=== PATIENT | male | born 1950 | race Hispanic/Latino ===

== ENCOUNTER 2018-01-23 15:54 | Observation (INO) | payer MEDICARE ==
[~2018-01-23] VITALS: Ht 175.3 cm; Wt 115.7 kg
[~2018-01-23 15:54] MED LIST: ASPIRIN81 MG PO; ATORVASTATIN CA20 MG PO; METFORMIN HCL500 MG PO; METOPROLOL TART50 MG PO; NITROGLYCERIN0.4 MG SL; PLAVIX75 MG PO
--- OUTSIDE RECORDS SUMMARY | 2018-01-23 15:57 | XMS REPORT | Clinical Summary ---
Author Author LASHAY [facility] Address Unknown Phone Unavailable Care Team Providers Care Segment Block Layer Name Role Phone PCP Unavailable Allergies No Known Allergies Current Medications Prescription Sig. Disp. Refills Start End Date Status Date atorvastatin (LIPITOR) 20 Take 20 mg by mouth Active MG tablet daily. clopidogrel (PLAVIX) 75 Take 75 mg by mouth Active mg tablet daily. metFORMIN (GLUCOPHAGE) Take 500 mg by mouth 2 Active 500 MG tablet (two) times daily with breakfast and dinner. artificial Place 1 drop into both Active tears,hypromellose, 0.4 % eyes 3 (three) times Drop daily as needed. nitroglycerin (NITROSTAT) Place 0.3 mg under the Active 0.3 MG SL tablet tongue every 5 (five) minutes as needed for Chest pain Put 1 pill under tongue every 5min as needed for chest pain.No more than 3 doses in 15min.Call 911 if pain is unrelieved 5min after 1st dose . metoprolol (TOPROL-XL) 50 Take 50 mg by mouth Active MG 24 hr tablet daily. Active Problems Not on file Social History Tobacco Use Types Packs/Day Years Used Date Former Smoker Quit: 12/01/1999 Alcohol Use Drinks/Week oz/Week Comments Yes 3 Cans of 1.8 beer Sex Assigned at Date Recorded Not on file Last Filed Vital Signs Not on file Plan of Treatment Not on file Implants Implanted Type Area Coal Passer Device Expiration Model / Identifier Date Serial / Lot Tissue Memb Amniograft 2.5x2cm IMPLANTS Bilateral: [employer] 03/2017 AG-2520 / Ag-2520 - [id number] Implanted: Qty: 1 on 01/10/2016 by -[id number] / Ivelisse Crowley MD [id number] Tissue Memb Amniograft 2.5x2cm Ophthalmol Left: Eye BIO-TISSUE 2017 AG-2520 / Ag-2520 - [id number] Implanted: Qty: 1 on 11/20/2016 by -[id number] / Ivelisse Crowley MD Results Not on fileafter 01/22/2017
[2018-01-23 18:54] LABS: BASOPHILS % 0.5 % (0.0-1.0); EOSINOPHILS # (AUTO) 0.2 (0.0-0.4); EOSINOPHILS % 2.3 % (0.0-6.0); HEMATOCRIT 41.3 % (38.2-49.6); HEMOGLOBIN 14.1 g/dL (14.0-18.0); LYMPHOCYTES # (AUTO) 2.2 (1.0-3.2); MEAN CORPUSCULAR HEMOGLOBIN 29.2 pg (28-32); MEAN CORPUSCULAR HGB CONC 34.1 g/dL (31-35); MEAN CORPUSCULAR VOLUME 85.5 fL (81-99); MONOCYTES # (AUTO) 0.7 (0.2-0.8); MONOCYTES % 8.3 % (4.4-11.3); NEUTROPHILS # (AUTO) 4.9 (2.1-6.9); NEUTROPHILS % 60.5 % (38.7-80.0); PLATELET COUNT 188 x10e3/uL (140-360); RED BLOOD COUNT 4.83 x10e6/uL (4.3-5.7); RED CELL DISTRIBUTION WIDTH 13.8 % (11.7-14.4)
[2018-01-23 19:05] LABS: ALANINE AMINOTRANSFERASE 26 IU/L (0-55); ALBUMIN/GLOBULIN RATIO 1.1 (0.8-2.0); ALKALINE PHOSPHATASE 82 IU/L (40-150); ANION GAP 14.6 mmol/L (8-16); BLOOD UREA NITROGEN 10 mg/dL (7-26); BUN/CREATININE RATIO 10 (6-25); CALCIUM 8.9 mg/dL (8.4-10.2); CARBON DIOXIDE 25 mmol/L (22-29); CHLORIDE 101 mmol/L (98-107); CHOL/HDL RATIO 3.5 (3.9-4.7); CHOLESTEROL 158 MD/DL (0-199); CREATININE, SERUM 0.97 mg/dL (0.72-1.25); EST GLOMERULAR FILTRATION RATE > 60 ML/MIN (60-); GLUCOSE 165 mg/dL (74-118); HDL CHOLESTEROL 45 MG/DL (40-60); LDL CHOLESTEROL 40 MG/DL (60-130); POTASSIUM 3.6 mmol/L (3.5-5.1); SODIUM 137 mmol/L (136-145); TRIGLYCERIDES 363 MG/DL (0-149)
--- NOTE | 2018-01-23 19:39 | Diagnostic Imaging Report ---
EXAMINATION: CHEST 2 VIEWS INDICATION: \S\Chest Pain \S\[id number] \S\185 COMPARISON: None FINDINGS: PA and lateral views TUBES and LINES: None. LUNGS: Lungs are well inflated. Lungs are clear. There is no evidence of pneumonia or pulmonary edema. PLEURA: No pleural effusion or pneumothorax. HEART AND MEDIASTINUM: The cardiomediastinal silhouette is unremarkable. BONES AND SOFT TISSUES: No acute osseous lesion. Degenerative changes of the spine. Mild compression deformity of the lower thoracic spine vertebral body of indeterminate age. Soft tissues are unremarkable. UPPER ABDOMEN: No free air under the diaphragm. IMPRESSION: No acute thoracic abnormality. Signed by: Dr. Desmond Duran MD on 01/23/2018 7:36 PM
[2018-01-23] MEDS ORDERED: ASPIRIN 81 MG CHEW TAB ONE (21:05)
[2018-01-23] MEDS ORDERED: ASPIRIN 81 MG CHEW TAB PO ONE (21:15)
[2018-01-23 21:26] LABS: INR 0.98; PROTHROMBIN TIME 12.2 seconds (11.9-14.5)
[2018-01-23 21:27] LABS: PARTIAL THROMBOPLASTIN TIME 30.8 seconds (23.8-35.5)
[2018-01-23 21:44] LABS: CREATINE KINASE MB 2.3 ng/mL (0-5.0)
[2018-01-23] MEDS ORDERED: NITROGLYCERIN 0.4 MG SUBL SL PRN (22:00)
[2018-01-23] MEDS ORDERED: MORPHINE SULFATE 2 MG/ML SYR IV PRN (22:00)
[2018-01-23] MEDS ORDERED: ONDANSETRON HCL INJ 2 MG/ML VIAL IV PRN (22:00)
--- OUTSIDE RECORDS SUMMARY | 2018-01-23 22:57 | XMS REPORT | Clinical Summary ---
Author Author LASHAY [facility] Address Unknown Phone Unavailable Care Team Providers Care Wind Turbine Erector Name Role Phone PCP Unavailable Allergies No [...] Not on file Implants Implanted Type Area Seat Installer Device Expiration Model / Identifier Date Serial / Lot Tissue Memb Amniograft 2.5x2cm IMPLANTS Bilateral: [employer] 03/2017 AG-2520 / Ag-2520 - [id number] Implanted: Qty: 1 on 01/10/2016 by -[id number] / Ivelisse Crowley MD [id number] Tissue Memb Amniograft 2.5x2cm Ophthalmol Left: Eye BIO-TISSUE 2017 AG-2520 / Ag-2520 - [id number] Implanted: Qty: 1 on 11/20/2016 by -[id number] / Ivelisse Crowley MD Results Not on fileafter 01/22/2017
--- OUTSIDE RECORDS SUMMARY | 2018-01-23 22:57 | XMS REPORT ---
[facility] Address Unknown Phone Unavailable Care Team Providers Care Quick Print Operator Name Role Phone MARCO RAMÍREZ Unavailable Unavailable Problems This patient has no known problems. Allergies, Adverse Reactions, Alerts This patient has no known allergies or adverse reactions. Medications This patient has no known medications. Results Test Description Test Time Test Comments Text Results Atomic Results Result Comments CHEST 2 VIEWS [place] [address] Patient Name: NURA ELLIS MR #: [id number] : 1950 Age/Sex: 67/M Req #: [id number] [facility] Physician: Ordered by: MARCO RAMÍREZ MD Report #: [id number] Location: ER Room/Bed: Procedure: [id number] DX/CHEST 2 VIEWS Exam Date: 01/23/18 Exam Time: 1854 REPORT STATUS: Signed EXAMINATION: CHEST 2 VIEWS INDICATION: COMPARISON: None FINDINGS: PA and lateral views TUBES and LINES: None. LUNGS: Lungs are well inflated. Lungs are clear. There is no evidence of pneumonia or pulmonary edema. PLEURA: No pleural effusion or pneumothorax. HEART AND MEDIASTINUM: The cardiomediastinal silhouette is unremarkable. BONES AND SOFT TISSUES: No acute osseous lesion. Degenerative changes of the spine. Mild compression deformity of the lower thoracic spine vertebral body of indeterminate age. Soft tissues are unremarkable. UPPER ABDOMEN: No free air under the diaphragm. IMPRESSION: No acute thoracic abnormality. Signed by: Dr. Desmond Duran MD on 01/23/2018 7:36 PM Dictated By: DESMOND DURAN MD 35 Transcribed By: ALPHONSO on 01/23/181935 COPY TO: MARCO RAMÍREZ MD
[2018-01-23] MEDS: ENOXAPARIN SODIUM INJ 100 MG/ML SYR SC SCH (23:15)
[2018-01-23] MEDS: FAMOTIDINE 20 MG/2 ML VIAL IV SCH (23:15)
[2018-01-23] MEDS ORDERED: OMEPRAZOLE40 MG PO (23:46)
[2018-01-23] MEDS ORDERED: GLIMEPIRIDE2 MG PO (23:46)
[2018-01-24 02:25] LABS: CREATINE KINASE MB 1.8 ng/mL (0-5.0)
[2018-01-24 05:18] LABS: BASOPHILS # (AUTO) 0.1 (0.0-0.1); BASOPHILS % 0.7 % (0.0-1.0); EOSINOPHILS # (AUTO) 0.3 (0.0-0.4); HEMATOCRIT 39.2 % (38.2-49.6); HEMOGLOBIN 13.1 g/dL (14.0-18.0); LYMPHOCYTES # (AUTO) 2.5 (1.0-3.2); LYMPHOCYTES % 36.6 % (18.0-39.1); MEAN CORPUSCULAR HEMOGLOBIN 28.7 pg (28-32); MEAN CORPUSCULAR HGB CONC 33.4 g/dL (31-35); MEAN CORPUSCULAR VOLUME 85.8 fL (81-99); MONOCYTES # (AUTO) 0.6 (0.2-0.8); MONOCYTES % 9.4 % (4.4-11.3); NEUTROPHILS # (AUTO) 3.3 (2.1-6.9); PLATELET COUNT 150 x10e3/uL (140-360); RED BLOOD COUNT 4.57 x10e6/uL (4.3-5.7)
[2018-01-24 05:37] LABS: ALANINE AMINOTRANSFERASE 22 IU/L (0-55); ALBUMIN 3.5 g/dL (3.5-5.0); ALBUMIN/GLOBULIN RATIO 1.1 (0.8-2.0); ALKALINE PHOSPHATASE 62 IU/L (40-150); ANION GAP 13.6 mmol/L (8-16); BLOOD UREA NITROGEN 11 mg/dL (7-26); BUN/CREATININE RATIO 14 (6-25); CALCIUM 8.5 mg/dL (8.4-10.2); CARBON DIOXIDE 26 mmol/L (22-29); CHLORIDE 102 mmol/L (98-107); CHOL/HDL RATIO 3.3 (3.9-4.7); CHOLESTEROL 138 MD/DL (0-199); CREATININE, SERUM 0.76 mg/dL (0.72-1.25); EST GLOMERULAR FILTRATION RATE > 60 ML/MIN (60-); GLUCOSE 130 mg/dL (74-118); HDL CHOLESTEROL 42 MG/DL (40-60); LDL CHOLESTEROL 81 MG/DL (60-130); POTASSIUM 3.6 mmol/L (3.5-5.1); SODIUM 138 mmol/L (136-145); TRIGLYCERIDES 77 MG/DL (0-149)
[2018-01-24] MEDS ORDERED: ASPIRIN 325 MG TAB EC PO SCH (09:00)
[2018-01-24] MEDS: ENOXAPARIN SODIUM INJ 100 MG/ML SYR SC SCH (09:29)
[2018-01-24] MEDS: FAMOTIDINE 20 MG/2 ML VIAL IV SCH ×2 (09:30→20:41)
[2018-01-24 09:44] LABS: CREATINE KINASE 163 IU/L (30-200)
[2018-01-24] MEDS ORDERED: ALPRAZOLAM 0.5 MG TAB PO PRN (10:30)
[2018-01-24] MEDS ORDERED: FAMOTIDINE 20 MG TAB PO PRN (10:30)
[2018-01-24] MEDS ORDERED: HEPARIN SOD/SOD CHLORIDE 2,000 ML PRN (13:34)
[2018-01-24] MEDS ORDERED: IOPAMIDOL 370 MG/ML 200 ML INFUS..BTL INJ PRN (13:34)
[2018-01-24] MEDS ORDERED: LIDOCAINE HCL 2% LOCAL 20 ML VIAL PRN (13:34)
[2018-01-24] MEDS ORDERED: SODIUM CHLORIDE 0.9% 1000ML 1,000 ML PRN (13:35)
--- OUTSIDE RECORDS SUMMARY | 2018-01-24 14:05 | XMS REPORT | Clinical Summary ---
Author Author LASHAY [facility] Address Unknown Phone Unavailable Care Team Providers Care Administrative Services Officer Name Role Phone PCP Unavailable Allergies No [...] Not on file Implants Implanted Type Area Model Maker Firearms Device Expiration Model / Identifier Date Serial / Lot Tissue Memb Amniograft 2.5x2cm IMPLANTS Bilateral: [employer] 03/2017 AG-2520 / Ag-2520 - [id number] Implanted: Qty: 1 on 01/10/2016 by -[id number] / Ivelisse Crowley MD [id number] Tissue Memb Amniograft 2.5x2cm Ophthalmol Left: Eye BIO-TISSUE 2017 AG-2520 / Ag-2520 - [id number] ogy [id number] Implanted: Qty: 1 on 11/20/2016 by -[id number] / Ivelisse Crowley MD Results Not on fileafter 01/23/2017
[2018-01-24] MEDS: FENTANYL CITRATE/PF 100MCG/2 ML INJ PRN ×2 (14:26→14:42)
[2018-01-24] MEDS: MIDAZOLAM HCL 2 MG/2 ML VIAL PRN ×2 (14:26→14:43)
[2018-01-24] MEDS ORDERED: CEFAZOLIN SOD 1 GM VIAL PRN (15:18)
[2018-01-24] MEDS ORDERED: HYDROCODONE/APAP 5MG-325MG TAB PO PRN (16:15)
[2018-01-24 16:21] VITALS: BP 134/67
[2018-01-24 16:30] VITALS: BP 134/67
[2018-01-24] MEDS ORDERED: METFORMIN HCL 500 MG TAB PO SCH (17:00)
[2018-01-24 20:00] VITALS: BP 127/59
[2018-01-24] MEDS ORDERED: ATORVASTATIN 40 MG TAB PO SCH (21:00)
[2018-01-24] MEDS ORDERED: ATORVASTATIN 20 MG TAB PO SCH (21:00)
[2018-01-25] VITALS: BP 127/59
[2018-01-25 00:56] VITALS: BP 123/76
--- NOTE | 2018-01-25 01:58 | Operative Report ---
DIAGNOSES 1. Coronary artery disease with previous stenting of large diagonal branch and unstable angina pectoris. 2. Hypertension. 3. Hyperlipidemia. 4. Diabetes mellitus. PROCEDURES 1. Cardiac catheterization including selective coronary angiography and left ventricular angiogram. 2. Angiogram of the left inguinal area prior to closure of the left femoral artery with Angio-Seal model Evolution. ANESTHESIA: With moderate sedation using 1 mg of Versed and 25 mcg of fentanyl. The patient received 2 injections. The patient also received 1 g of Ancef prior to closure of the left femoral artery. DESCRIPTION OF PROCEDURE: After usual prepping and draping, the left inguinal area was infiltrated with local lidocaine. The left femoral vein was punctured percutaneously and a guidewire was inserted and secured to the outside. The left femoral artery was then punctured also percutaneously and under modified Seldinger technique, a 6-Hebrew arterial sheath was placed in the left femoral artery. Selective coronary angiography was performed by using modified Queenie catheter. A 6-Hebrew pigtail catheter was utilized for recording of hemodynamics and left ventricular angiogram in the 30-degree DUNBAR projection. After removal of the pigtail catheter, angiogram of the left groin area was performed in the left anterior oblique position prior to closure of the left femoral artery with Angio-Seal. The guidewire was then removed from the left femoral vein and pressure was applied and after adequate hemostasis was achieved, dressing was applied and the patient transferred to the observation area in stable condition. There were no complications. The procedure was well tolerated. There was no blood loss. FINDINGS OF CARDIAC CATHETERIZATION: The left ventricular pressure was 145 mmHg. The aortic pressure was 145/70 with a mean of 98 mmHg. The left ventricular end-diastolic pressure was elevated at 20 mmHg. The left main coronary artery was short showing an early bifurcation, but was normal. The proximal left anterior descending branch had an eccentric plaque causing about 30% narrowing and there were some minor plaques in the mid portion of the LAD as well. The diagonal branch showed a patent coronary stent and was free of disease. The left circumflex trunk showed some ectasia and minor plaques, which also were noted in the large first obtuse marginal branch. The right coronary artery showed about 20% to 30% narrowing in the mid portion and there was a codominant system with the posterior descending branch coming off the right coronary artery and the posterolateral branch coming off the left circumflex artery. There also were some calcium deposits in the left anterior descending branch seen on fluoroscopy. The left ventricular angiogram showed some mild apical hypokinesis with left ventricular ejection fraction of 50%. As visualized the thoracic aorta in the ascending and descending portion was normal without any evidence of aneurysm or dissection. IMPRESSION 1. Mild coronary artery disease with patent stent in the diagonal branch. 2. Left ventricular dysfunction with an elevated left ventricular end diastolic pressure and mild apical hypokinesis. RECOMMENDATION: Continue medical therapy. Job#: [id number] cc:BOBO LICONA M.D.
[2018-01-25 06:29] VITALS: BP 146/85
[2018-01-25] MEDS ORDERED: GLIMEPIRIDE 2 MG TAB PO SCH (08:00)
[2018-01-25 08:27] VITALS: BP 130/68
[2018-01-25] MEDS ORDERED: PANTOPRAZOLE SOD 40 MG TABEC PO SCH (09:00)
[2018-01-25] MEDS ORDERED: ASPIRIN 81 MG CHEW TAB PO SCH (09:00)
[2018-01-25] MEDS ORDERED: CLOPIDOGREL BISULFATE 75 MG TAB PO SCH (09:00)
== END 2018-01-25 10:20 | disposition home or self-care (01) ==
LOC: ER 15:54 → UNDOADMIN 22:55 → ERHOLD 22:55 → CATH LAB 01-24 14:03 → IMCU 01-24 17:08
PROVIDERS: ADMIT Internal Medicine Cardiovascular Disease; ATTEND Internal Medicine Cardiovascular Disease
DX: I25.110 Atherosclerotic heart disease of native coronary artery with unstable angina pectoris (principal); Z95.5 Presence of coronary angioplasty implant and graft; I10 Essential (primary) hypertension; E11.9 Type 2 diabetes mellitus without complications
CPT/HCPCS: 36415 ×3; 71046; 77002; 80053 ×2; 80061 ×2; 82550 ×2; 82553 ×2; 82948 ×2; 83880; 84484 ×2; 85025 ×2; 85610; 85730; 93005; 93458; 99284; G0378 ×2; J0690; J1650; J2001; J2250; J7030; Q9967; 36140; 93452

== ENCOUNTER 2025-07-31 10:05 | Emergency (ER) | payer MEDICARE ==
[~2025-07-31] VITALS: Ht 175.3 cm; Wt 109.3 kg
[~2025-07-31 10:05] MED LIST changes: +GLIMEPIRIDE2 MG PO; +OMEPRAZOLE40 MG PO
[2025-07-31] MEDS ORDERED: FUROSEMIDE40 MG PO (10:59)
[2025-07-31] MEDS ORDERED: CORICIDIN HBP355 M3 PO (10:59)
[2025-07-31] MEDS ORDERED: NEURONTIN100 MG PO (11:15)
[2025-07-31] MEDS ORDERED: AMLODIPINE BESYL5 MG PO (11:15)
[2025-07-31] MEDS ORDERED: LOSARTAN POTASS25 MG PO (11:15)
[2025-07-31 11:57] VITALS: PULSE 65; RESP 18; TEMP 98.8; O2SAT 95
== END 2025-07-31 11:57 | disposition home or self-care (01) ==
LOC: FSED 10:19
DX: R06.01 Orthopnea (principal); J81.0 Acute pulmonary edema; R05.9 Cough, unspecified; I10 Essential (primary) hypertension; I25.10 Atherosclerotic heart disease of native coronary artery without angina pectoris; Z95.5 Presence of coronary angioplasty implant and graft
CPT/HCPCS: 71046; 80053; 83880; 84484; 85025; 99284